=== PATIENT | male | born 1990 | race Caucasian/White ===

== ENCOUNTER 2019-03-26 15:57 | Emergency (ER) | payer OTHER ==
[~2019-03-26] VITALS: Ht 175.3 cm; Wt 90.9 kg
[2019-03-26] MEDS ORDERED: TYLENOL 325MG325 MG PO (16:14)
[2019-03-26] MEDS ORDERED: MOTRIN 600600 MG/TAB PO (16:15)
[2019-03-26] MEDS ORDERED: ROXICODONE 55 MG/TAB PO (16:16)
[2019-03-26] MEDS ORDERED: DECADRON 4MG TAB4 MG PO (17:14)
[2019-03-26] MEDS ORDERED: PERCOCET 325 MG1 TA2 PO (17:14)
[2019-03-26 17:25] VITALS: BP 133/82; PULSE 65; TEMP 98.2
== END 2019-03-26 17:30 | disposition home or self-care (01) ==
LOC: COL.ER 15:57
DX: R06.02 Shortness of breath (principal); G89.18 Other acute postprocedural pain; Z90.49 Acquired absence of other specified parts of digestive tract
CPT/HCPCS: J1885; J8540